=== PATIENT | female | born 1960 | race Caucasian/White ===

== ENCOUNTER 2018-12-22 07:51 | Emergency (ER) | payer MEDICARE, OTHER ==
[2018-12-22] MEDS ORDERED: Albuterol 0.083% 2.5 MG/3 ML Neb Soln NEB ONE (08:30)
--- NOTE | 2018-12-22 08:30 | EDM.PDOC ---
ED HPI GENERAL MEDICAL PROBLEM - General Chief Complaint: ENT Problem Stated Complaint: SINUS INFECTION Time Seen by Provider: 12/22/18 08:30 Source of Information: Reports: Patient History Limitations: Reports: No Limitations - History of Present Illness INITIAL COMMENTS - FREE TEXT/NARRATIVE: pt has been blowing out thick green mucous. She has pressure over the frontal and maxillary sinus. She has not had a fever, She does think that the asthma has flared because of the infection. Onset: Other ( started yesterday. ) Duration: Hour(s): Location: Reports: Face, Chest Associated Symptoms: Reports: Cough, Loss of Appetite, Shortness of Breath Head Pain Score (Numeric/FACES): 3 - Related Data Allergies Allergy/AdvReac Type Severity Reaction Status Date / Time amoxicillin Allergy Rash Verified 12/22/18 08:18 codeine Allergy Rash Verified 12/22/18 08:18 fluticasone furoate Allergy Swelling Verified 12/22/18 08:18 [From Breo Ellipta] lamotrigine [From Lamictal] Allergy Swelling Verified 12/22/18 08:18 oxcarbazepine Allergy Swelling Verified 12/22/18 08:18 [From Trileptal] vilanterol Allergy Swelling Verified 12/22/18 08:18 [From Breo Ellipta] cephalexin [From Keflex] AdvReac Stomach Verified 12/22/18 08:18 Ache erythromycin base AdvReac Stomach Verified 12/22/18 08:18 Ache prednisone AdvReac Other Verified 12/22/18 08:18 risperidone AdvReac Body Aches Verified 12/22/18 08:18 Sulfa (Sulfonamide AdvReac Stomach Verified 12/22/18 08:18 Antibiotics) Ache Home Meds: Home Meds ALPRAZolam [Alprazolam ER] 1 mg PO BEDTIME 12/22/18 [History] Albuterol Sulfate [Proair Hfa] 2 puff IH ASDIRECTED PRN 12/22/18 [History] EPINEPHrine [Auvi-Q] 0.1 mg IJ ASDIRECTED PRN 12/22/18 [History] Fluticasone/Salmeterol [Advair 250-50] 1 puff IH DAILY 12/22/18 [History] Folic Acid 1 mg PO DAILY 12/22/18 [History] Gabapentin [Neurontin] 300 mg PO BID 12/22/18 [History] Levothyroxine 75 mcg PO DAILY 12/22/18 [History] Montelukast [Singulair] 10 mg PO DAILY 12/22/18 [History] Pantoprazole [ProTONIX] 40 mg PO DAILY 12/22/18 [History] Prazosin [Minpress] 4 mg PO DAILY 12/22/18 [History] Trihexyphenidyl [Artane] 2 mg PO DAILY 12/22/18 [History] Ziprasidone HCl [Geodon] 40 mg PO BID 12/22/18 [History] buPROPion HCl [Bupropion Xl] 450 mg PO DAILY 12/22/18 [History] valACYclovir [Valtrex] 500 mg PO DAILY 12/22/18 [History] Past Medical History HEENT History: Reports: Impaired Vision Respiratory History: Reports: Asthma Neurological History: Reports: None Psychiatric History: Reports: Depression, PTSD - Past Surgical History Head Surgeries/Procedures: Reports: None HEENT Surgical History: Reports: Naso-Sinus Surgery Respiratory Surgical History: Reports: None Neurological Surgical History: Reports: Lumbar Spine Musculoskeletal Surgical History: Reports: Arthroscopic Knee, Knee Replacement, Shoulder Surgery Dermatological Surgical History: Reports: None Social & Family History - Tobacco Use Smoking Status *Q: Never Smoker Second Hand Smoke Exposure: No - Caffeine Use Caffeine Use: Reports: Coffee, Soda - Recreational Drug Use Recreational Drug Use: No ED ROS ENT - Review of Systems Review Of Systems: See Below Constitutional: Reports: Malaise, Decreased Appetite HEENT: Reports: Ear Pain, Sinus Problem Respiratory: Reports: Shortness of Breath Cardiovascular: Reports: No Symptoms Endocrine: Reports: No Symptoms GI/Abdominal: Reports: No Symptoms : Reports: No Symptoms Musculoskeletal: Reports: No Symptoms Skin: Reports: No Symptoms ED EXAM, ENT - Physical Exam Exam: See Below Text/Narrative:: pt arrived feeling pressure over her frontal and maxillary sinuses. She feels like her asthma has flared. She is not using her inhalers regularly. Exam Limited By: No Limitations General Appearance: Alert, Anxious, Moderate Distress Ears: Normal TMs, Other ( small amount of fluid behind the drums. ) Nose: Normal Inspection Mouth/Throat: Normal Inspection Head: Atraumatic, Other (pt is tender over the maxillary and frontal sinuses. ) Neck: Normal Inspection Respiratory/Chest: Wheezing Cardiovascular: Regular Rate, Rhythm GI/Abdominal: Soft, Non-Tender (Female) Exam: Deferred Rectal (Female) Exam: Deferred Back: Normal Inspection Extremities: Normal Inspection Course - Vital Signs Last Recorded V/S: Last Vital Signs Temp 37.5 C 12/22/18 08:06 Pulse 64 12/22/18 08:06 Resp 16 12/22/18 08:06 BP 157/95 H 12/22/18 08:06 Pulse Ox 93 L 12/22/18 08:06 - Orders/Labs/Meds Meds: Medications Discontinued Medications Generic Name Dose Route Start Last Admin Trade Name Freq PRN Reason Stop Dose Admin Albuterol 2.5 mg 12/22/18 08:30 12/22/18 08:35 Proventil Neb Soln NEB 12/22/18 08:31 2.5 mg ONETIME ONE Administration - Re-Assessments/Exams Free Text/Narrative Re-Assessment/Exam: 12/22/18 08:39 pt was given a albuterol neb. Departure - Departure Time of Disposition: 08:33 Disposition: Home, Self-Care 01 Condition: Fair Clinical Impression: Sinusitis - Discharge Information Instructions: Sinusitis, Adult, [id number] Referrals: PCP,None [Primary Care Provider] - Forms: ED Department Discharge Care Plan Goals: push fluids, cool mist humidfioer, use proair inhaler regularly 3-4 times daily , zithromax 250 2 tabs now and the 1 tab daily for 8 days. tesslon perles 200mg tid prn for cough.
== END 2018-12-22 08:55 | disposition home or self-care (01) ==
LOC: JP.ED 07:51
DX: J32.9 Chronic sinusitis, unspecified (principal); J45.909 Unspecified asthma, uncomplicated; F32.9 Major depressive disorder, single episode, unspecified; Z88.1 Allergy status to other antibiotic agents; Z88.8 Allergy status to other drugs, medicaments and biological substances; Z88.5 Allergy status to narcotic agent; Z88.2 Allergy status to sulfonamides; Z79.899 Other long term (current) drug therapy
CPT/HCPCS: 94640; 99283; 99283-25